=== PATIENT | male | born 1955 | race Caucasian/White ===

== ENCOUNTER 2021-11-03 21:43 | Emergency (ER) | payer OTHER, MEDICARE ==
[~2021-11-03] VITALS: Ht 180.3 cm; Wt 79.4 kg
[~2021-11-03 21:43] MED LIST: IBUP800 PO; LISI5 PO; TRAM50 PO
[2021-11-03] MEDS ORDERED: HYDCHL12.5 PO (22:11)
[2021-11-03] MEDS ORDERED: AMLO5 PO (22:11)
[2021-11-03 22:58] LABS: BASOPHILS ABSOLUTE AUTO 0.04 K/mm3 (0.00-0.23); BASOPHILS PERCENT AUTO 0 % (0-2); EOSINOPHILS ABSOLUTE AUTO 0.12 K/mm3 (0.00-0.68); EOSINOPHILS PERCENT AUTO 1 % (0-6); Hematocrit 40.9 % (37.0-53.0); IMMATURE GRAN ABSOLUTE AUTO 0.02 K/mm3 (0.00-0.10); IMMATURE GRAN PERCENT AUTO 0 % (0-1); LYMPHOCYTES PERCENT AUTO 19 % (21-46); MONOCYTES ABSOLUTE AUTO 0.94 K/mm3 (0.16-1.47); MONOCYTES PERCENT AUTO 10 % (4-13); Mean Corpuscular HGB 30.9 pg (26.0-34.0); Mean Corpuscular HGB Conc 34.2 g/dL (31.5-36.5); Mean Corpuscular Volume 90 fL (80-100); Mean Platelet Volume 9.8 fL (9.1-12.4); NEUTROPHILS ABSOLUTE AUTO 6.73 K/mm3 (1.96-9.15); NEUTROPHILS PERCENT AUTO 70 % (41-73); Platelet Count 213 K/mm3 (150-400); RDW Coefficient Variation 13.6 % (11.7-14.2); RDW Standard Deviation 45.7 fL (35.1-46.3); Red Blood Cell Count 4.53 M/mm3 (4.30-5.90); White Blood Cell Count 9.65 K/mm3 (4.00-11.30)
[2021-11-03 23:07] LABS: Source, Urine Clean Catch
[2021-11-03 23:23] LABS: Appearance, Urine Clear (Clear); Bilirubin, Urine Neg (Neg); Blood, Urine Neg (Neg); Color, Urine Yellow (P-Yellow); Glucose Qualitative, Urine Neg (Neg); Ketones, Urine Neg (Neg); Leukocyte Esterase, Urine Neg (Neg); Nitrite, Urine Neg (Neg); Protein, Urine Neg (Neg); Specific Gravity, Urine 1.005 (1.003-1.022); Urobilinogen, Urine NORM (Normal)
[2021-11-03 23:44] LABS: Albumin, Blood 3.5 g/dL (3.4-5.0); Albumin/Globulin Ratio 1.1 (0.8-1.8); Bilirubin, Total 0.6 mg/dL (0.1-1.0); Bun/Creatinine Ratio 7.9 (12.0-20.0); Calcium, Blood 8.7 mg/dL (8.5-10.1); Creatinine, Blood 1.91 mg/dL (0.60-1.20); Globulin, Blood 3.1 g/dL (2.2-4.0); Total Protein, Blood 6.6 g/dL (6.4-8.2)
== END 2021-11-04 00:49 | disposition home or self-care (01) ==
LOC: ER 21:43
PROVIDERS: Physician Assistant
DX: R10.31 Right lower quadrant pain (principal); I10 Essential (primary) hypertension; Z79.899 Other long term (current) drug therapy; F17.210 Nicotine dependence, cigarettes, uncomplicated
CPT/HCPCS: 36415; 74176; 76705; 80053; 81003; 83690; 85025; 96374; 99284-25; J3010; J7030

== ENCOUNTER 2022-05-24 08:59 | Day surgery (SDC) | payer OTHER ==
[~2022-05-24] VITALS: Ht 180.3 cm; Wt 70.7 kg
[~2022-05-24 08:59] MED LIST changes: +AMLO5 PO; +HYDCHL12.5 PO
== END 2022-05-24 10:35 | disposition home or self-care (01) ==
LOC: ORSCSDS 08:59
PROVIDERS: Surgery
PROC: 0DBK8ZX Excision of Ascending Colon, Via Natural or Artificial Opening Endoscopic, Diagnostic (ICD-10-PCS; principal; 2022-05-24 10:45)
DX: Z12.11 Encounter for screening for malignant neoplasm of colon (principal); D12.2 Benign neoplasm of ascending colon; I10 Essential (primary) hypertension; E78.5 Hyperlipidemia, unspecified; R73.09 Other abnormal glucose; Z79.899 Other long term (current) drug therapy; F17.210 Nicotine dependence, cigarettes, uncomplicated
CPT/HCPCS: 88305; J2704; J7120

== ENCOUNTER 2024-12-18 15:53 | Inpatient (IN) | payer MEDICARE ==
[~2024-12-18] VITALS: Ht 180.3 cm; Wt 68.0 kg
[2024-12-18] MEDS ORDERED: Diphth,Pertuss(Acell),Tet Vac 0.5 ML VIAL IM ONE (16:25)
[2024-12-18] MEDS ORDERED: Ondansetron HCl 2 MG / ML 2ML Vial IV ONE (16:25)
[2024-12-18] MEDS ORDERED: Morphine Sulfate 4 MG/1 ML Injection IV ONE (16:25)
[2024-12-18 16:40] LABS: BASOPHILS ABSOLUTE AUTO 0.05 K/mm3 (0.00-0.23); BASOPHILS PERCENT AUTO 0 % (0-2); EOSINOPHILS ABSOLUTE AUTO 0.13 K/mm3 (0.00-0.68); EOSINOPHILS PERCENT AUTO 1 % (0-6); Hematocrit 38.8 % (37.0-53.0); Hemoglobin 12.9 g/dL (13.5-17.5); IMMATURE GRAN ABSOLUTE AUTO 0.04 K/mm3 (0.00-0.10); IMMATURE GRAN PERCENT AUTO 0 % (0-1); LYMPHOCYTES ABSOLUTE AUTO 2.45 K/mm3 (0.84-5.20); LYMPHOCYTES PERCENT AUTO 18 % (21-46); MONOCYTES ABSOLUTE AUTO 0.79 K/mm3 (0.16-1.47); MONOCYTES PERCENT AUTO 6 % (4-13); Mean Corpuscular HGB 31.1 pg (26.0-34.0); Mean Corpuscular HGB Conc 33.2 g/dL (31.5-36.5); Mean Corpuscular Volume 94 fL (80-100); Mean Platelet Volume 9.9 fL (9.1-12.4); NEUTROPHILS ABSOLUTE AUTO 10.58 K/mm3 (1.96-9.15); NEUTROPHILS PERCENT AUTO 75 % (41-73); Platelet Count 185 K/mm3 (150-400); RDW Coefficient Variation 13.9 % (11.7-14.2); RDW Standard Deviation 46.8 fL (35.1-46.3); Red Blood Cell Count 4.15 M/mm3 (4.30-5.90); White Blood Cell Count 14.04 K/mm3 (4.00-11.30)
[2024-12-18 17:14] LABS: Bun/Creatinine Ratio 13.8 (12.0-20.0); Calcium, Blood 8.6 mg/dL (8.5-10.1); Creatinine, Blood 1.74 mg/dL (0.60-1.20); Potassium, Blood 3.8 mmol/L (3.5-5.5)
[2024-12-18] MEDS ORDERED: Ondansetron HCl 2 MG / ML 2ML Vial IV PRN (19:45)
[2024-12-18] MEDS ORDERED: Albuterol 2.5 MG/3 ML VIAL INH PRN (19:50)
[2024-12-18 22:24] LABS: Hematocrit 33.8 % (37.0-53.0); Hemoglobin 11.4 g/dL (13.5-17.5)
[2024-12-18 22:41] VITALS: BP 135/77
[2024-12-18] MEDS ORDERED: OxyCODONE 5 mg/Acetamin 325 mg TABLET PO PRN (23:05)
[2024-12-19 03:16] LABS: Hematocrit 32.4 % (37.0-53.0); Hemoglobin 11.1 g/dL (13.5-17.5); Mean Corpuscular HGB 31.6 pg (26.0-34.0); Mean Corpuscular HGB Conc 34.3 g/dL (31.5-36.5); Mean Corpuscular Volume 92 fL (80-100); Mean Platelet Volume 9.7 fL (9.1-12.4); Platelet Count 154 K/mm3 (150-400); RDW Coefficient Variation 14.1 % (11.7-14.2); RDW Standard Deviation 47.7 fL (35.1-46.3); Red Blood Cell Count 3.51 M/mm3 (4.30-5.90); White Blood Cell Count 9.71 K/mm3 (4.00-11.30)
[2024-12-19 04:21] VITALS: BP 138/83
--- NOTE | 2024-12-19 06:21 | NUR ---
NOC SUMMARY- PT ARRIVED TO ROOM IN NO DISTRESS. PT RIGHT THIGH REWRAPPED WITH LYDIA BANDAGE. PT BRUISING OUTLINED. PT RLE IS COOLER THAN THE LLE. GOOD CCMS, PEDAL PULSES INTACT. PT HAS DENIED INCREASED PAIN. PT INJURY SITE STILL SOFT TO PALAPATION. PT HAS DENIED ANY NUMBNESS OR TINGLING. PT IS VOIDING AND AMBULATING WITH FWW. PT TOLERATING PO. PT PAIN MANAGED WELL. CALL LIGHT IN REACH.
[2024-12-19 07:28] VITALS: BP 129/81
[2024-12-19 11:07] LABS: Bun/Creatinine Ratio 15.8 (12.0-20.0); Calcium, Blood 8.5 mg/dL (8.5-10.1); Creatinine, Blood 1.71 mg/dL (0.60-1.20); Potassium, Blood 4.3 mmol/L (3.5-5.5)
[2024-12-19 14:58] VITALS: BP 128/68
[2024-12-19 15:56] LABS: Hematocrit 29.6 % (37.0-53.0); Hemoglobin 10.3 g/dL (13.5-17.5)
--- NOTE | 2024-12-19 17:41 | NUR ---
PATIENT IS AOX4, R THIGH IS SOFT TO PALP, SWELLING NOTED IN THE PEN MARGINS, PEDAL PULSES ON RIGHT ARE FAINT AND PALABLE, FOUND WITH DOPPLER WELL. VICKIE HOSE PLACED AND LYDIA WRAP FROM UPPER THIGH DOWN TO LOWER ANKLE PLACED BY DR. CRYSTAL. LEFT PEDAL PULSES STRONG ON PALP. ABLE TO AMULATE IN ROOM WITH SBA TO BATHROOM. ASSESSES PEDAL PULSES AND NOTES SKIN COLD TO TOUCH. CAP REFILL IS LESS THAN 3 SECONDS AND PATIENT DOES REPORT BASELINE NEUROPATHY. DR. CRYSTAL DOES TELL THIS RN AND PATIENT THAT FROM SURGICAL STAND POINT NO NEED TO STAY AND MAY BE DISCHARGED HOME. THIS RN DID CALL DR. CRYSTAL TO CLARIFY HGB AND HCT LEVEL DROP AND MOST RECENT VITAL SIGNS. DR. CRYSTAL DOES CONSENT TO DISHCARGE HOME. CALL TO DR. MEDINA TO RELAY THIS MESSAGE.
[2024-12-20] MEDS ORDERED: AmLODIPine Besylate 5 MG Tab PO SCH (09:00)
== END 2024-12-19 18:38 | disposition home or self-care (01) | DRG 605 ==
LOC: ER 15:53 → SURS 15:54
PROVIDERS: Emergency Medicine; Family Medicine; Nurse Practitioner Acute Care; ADMIT Student in an Organized Health Care Education/Training Program
DX: S70.11XA Contusion of right thigh, initial encounter (principal); D62 Acute posthemorrhagic anemia; W20.8XXA Other cause of strike by thrown, projected or falling object, initial encounter; I12.9 Hypertensive chronic kidney disease with stage 1 through stage 4 chronic kidney disease, or unspecified chronic kidney disease; N18.30 Chronic kidney disease, stage 3 unspecified; F17.210 Nicotine dependence, cigarettes, uncomplicated
CPT/HCPCS: 36415; 73701; 80048; 82550; 85014; 85018; 85025; 85027; 90471; 90715; 93005; 93010; 99285-25; A9270; G0378; J2270; J2405; Q9967

== ENCOUNTER → 2024-12-23 | Outpatient (CLI) | payer OTHER, MEDICARE ==
[2024-12-23 12:47] LABS: BASOPHILS ABSOLUTE AUTO 0.03 K/mm3 (0.00-0.23); BASOPHILS PERCENT AUTO 0 % (0-2); EOSINOPHILS ABSOLUTE AUTO 0.14 K/mm3 (0.00-0.68); EOSINOPHILS PERCENT AUTO 2 % (0-6); Hemoglobin 10.3 g/dL (13.5-17.5); IMMATURE GRAN ABSOLUTE AUTO 0.03 K/mm3 (0.00-0.10); IMMATURE GRAN PERCENT AUTO 0 % (0-1); LYMPHOCYTES ABSOLUTE AUTO 1.33 K/mm3 (0.84-5.20); LYMPHOCYTES PERCENT AUTO 14 % (21-46); MONOCYTES ABSOLUTE AUTO 0.76 K/mm3 (0.16-1.47); MONOCYTES PERCENT AUTO 8 % (4-13); Mean Corpuscular HGB Conc 33.2 g/dL (31.5-36.5); Mean Corpuscular Volume 93 fL (80-100); Mean Platelet Volume 9.5 fL (9.1-12.4); NEUTROPHILS ABSOLUTE AUTO 7.14 K/mm3 (1.96-9.15); NEUTROPHILS PERCENT AUTO 76 % (41-73); Platelet Count 220 K/mm3 (150-400); RDW Standard Deviation 47.1 fL (35.1-46.3); Red Blood Cell Count 3.32 M/mm3 (4.30-5.90); White Blood Cell Count 9.43 K/mm3 (4.00-11.30)
[2024-12-23 13:06] LABS: Albumin, Blood 3.4 g/dL (3.4-5.0); Albumin/Globulin Ratio 1.1 (0.8-1.8); Bilirubin, Total 0.9 mg/dL (0.1-1.0); Bun/Creatinine Ratio 11.4 (12.0-20.0); Creatinine, Blood 1.4 mg/dL (0.60-1.20); Globulin, Blood 3.2 g/dL (2.2-4.0); Potassium, Blood 4.3 mmol/L (3.5-5.5); Total Protein, Blood 6.6 g/dL (6.4-8.2)
== END ==
LOC: LAB SHORT 12:43 → LAB 12:43
PROVIDERS: Family Medicine
DX: S70.11XA Contusion of right thigh, initial encounter (principal)
CPT/HCPCS: 80053; 82550; 85025